=== PATIENT | male | born 1935 | race Asian ===

== ENCOUNTER 2019-01-04 14:51 | Inpatient (IN) | payer MEDICARE ==
[~2019-01-04] VITALS: Ht 167.6 cm; Wt 66.0 kg
[2019-01-04] MEDS ORDERED: ASPIRIN 81 MG TABLET CHEW ONE (15:12)
--- NOTE | 2019-01-04 15:18 | NUR ---
PT AMBULATORY TO ROOM 18 W/ C/O CP STARTED YESTERDAY. PT STATES PAIN TO L SIDE AND WORSE W/ INSPIRATION NOT W/ PALPATION. PT ALSO HAS C/O LUQ ABD PAIN ALSO STARTED LAST NOC. DENIES N/V/D. PT RESTING ON GURNEY. NADN. MONITORS APPLIED. 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 WARM BLANKET PROVIDED.
[2019-01-04] MEDS ORDERED: METF500T17 PO (15:21)
[2019-01-04] MEDS ORDERED: GLYB5TAB3 PO (15:21)
[2019-01-04] MEDS ORDERED: ASPI-515 PO (15:21)
[2019-01-04] MEDS ORDERED: LINA5TAB PO (15:21)
[2019-01-04] MEDS ORDERED: ASPIRIN 81 MG TABLET CHEW PO ONE (15:30)
--- NOTE | 2019-01-04 15:33 | NUR ---
ERP DR. MCGOWAN AT BEDSIDE.
[2019-01-04 15:43] LABS: BASOPHILS # (AUTO) 0.09 x10^3/uL (0-0.1); BASOPHILS % (AUTO) 1 % (0-1); EOSINOPHILS # (AUTO) 0.35 x10^3/uL (0-0.4); EOSINOPHILS % (AUTO) 5 % (1-7); LYMPHOCYTES % (AUTO) 26 % (22-44); MD NO; MEAN CORPUSCULAR HEMOGLOBIN 30.4 pg (27.5-34.5); MEAN CORPUSCULAR HGB CONC 33.5 g/dL (33.2-36.2); MEAN CORPUSCULAR VOLUME 90.8 fL (81-97); MEAN PLATELET VOLUME 9.8 fL (7.4-10.4); MONOCYTES # (AUTO) 0.65 x10^3/uL (0.2-0.8); MONOCYTES % (AUTO) 9 % (2-9); NEUTROPHILS # (AUTO) 4.15 x10^3/uL (1.8-6.8); NEUTROPHILS % (AUTO) 59 % (42-75); PLATELET COUNT 228 x10^3/uL (130-400); RED BLOOD COUNT 4.92 x10^6/uL (4.38-5.82); RED CELL DISTRIBUTION WIDTH 14.7 % (9.4-14.8)
[2019-01-04] MEDS ORDERED: NITROGLYCERIN SINGLE TAB 0.4 MG SL ONE ×2 (15:43→16:00)
[2019-01-04 15:47] LABS: ALBUMIN 4.1 g/dL (3.4-5.0); ANION GAP 8 mmol/L (5-15); CHLORIDE 104 mmol/L (98-107); CREATININE 1.34 mg/dL (0.7-1.3)
--- NOTE | 2019-01-04 15:49 | NUR ---
PT VERBALIZES NO IMPROVEMENT AFTER ADMIN OF NITRO. PAIN REMAINS THE SAME PER PT.
[2019-01-04 15:52] LABS: TROPONIN I 0.029 ng/mL (0.000-0.045)
[2019-01-04 16:15] LABS: INTERNATIONAL NORMALIZED RATIO 0.95 (0.93-1.1)
--- NOTE | 2019-01-04 16:37 | NUR ---
PT RESTING ON LUIS. JOSE ELIAS. VSS. FAMILY REMAINS AT BEDSIDE.
[2019-01-04] MEDS ORDERED: DEXTROSE 4 GM TAB.CHEW PO PRN (17:00)
[2019-01-04] MEDS ORDERED: NITROGLYCERIN 0.4 MG BOTTLE (25 TABS) SL PRN (17:00)
[2019-01-04] MEDS ORDERED: ASPIRIN 325 MG TABLET EC PO ONE (17:00)
[2019-01-04] MEDS ORDERED: GLUCAGON 1 MG IM PRN (17:00)
[2019-01-04] MEDS ORDERED: ACETAMINOPHEN 325 MG TABLET PO PRN (17:00)
[2019-01-04] MEDS ORDERED: morphine SULFATE 10 MG/ML, 1ML IV PRN (17:00)
[2019-01-04] MEDS ORDERED: DEXTROSE 50%, 50ML SYRINGE IVPush PRN (17:00)
[2019-01-04] MEDS ORDERED: HEPARIN 5,000 UNITS/ML, 1ML SQ SCH (17:00)
[2019-01-04] MEDS ORDERED: NITROGLYCERIN 0.4 MG/SPRAY SL PRN (17:00)
[2019-01-04] MEDS ORDERED: OMNIPAQUE 350 MG/ML, 100ML BOTTLE ONE (17:04)
[2019-01-04 17:16] LABS: CHOLESTEROL, TOTAL 151 mg/dL (140-239); TRIGLYCERIDES 214 mg/dL (50-200); VLDL CHOLESTEROL 43 mg/dL (0-25)
[2019-01-04 17:19] LABS: HDL CHOL % 34 % (26-37); HDL CHOLESTEROL (DIRECT) 51 mg/dL (40-60); LDL CHOLESTEROL,CALCULATED 57 mg/dL (54-169); LDL/HDL RATIO 1.1 (0.5-3.0)
--- NOTE | 2019-01-04 17:42 | NUR ---
SPOKE W/ DR. WALSH WHO STATES TO KEEP PT NPO AT THIS TIME.
--- NOTE | 2019-01-04 17:45 | NUR ---
NPO AFTER MN. REG DIET AT THIS TIME.
[2019-01-04] MEDS ORDERED: HEPARIN 5,000 UNITS/ML, 1ML ONE (18:00)
--- NOTE | 2019-01-04 18:07 | NUR ---
PT RESTING ON GURMAHESH. NADN. VSS. FAMILY AWARE OF POC FOR ADMIT. DIET TRAY ORDERED. PT AND FAMILY AWARE OF STRESS TEST AND NEED TO REMAIN NPO AFTER MN AND TO NOT HAVE ANY COFFEE, TEA, CHOCOLATE AND ANY CAFFEINATED ITEMS.
--- NOTE | 2019-01-04 18:18 | NUR ---
PT PROVIDED W/ DINNER TRAY.
--- NOTE | 2019-01-04 18:57 | NUR ---
PT MOVED FROM [facility] TO [facility] BED. REPORT GIVEN TO NELLIE ONEILL.
--- NOTE | 2019-01-04 19:00 | NUR ---
SBAR report received from RNFunmilayo. Pt resting on hospital bed, pt given dinner already.
--- NOTE | 2019-01-04 19:36 | NUR ---
Pt continues resting on hospital bed, pt made aware of new room assignment.
[2019-01-04 19:53] LABS: TROPONIN I 0.384 ng/mL (0.000-0.045)
[2019-01-04] MEDS ORDERED: HEPARIN 25,000 UNITS/500ML PMX 500 ML ONE (21:08)
[2019-01-04] MEDS: SODIUM CHLORIDE FLUSH 10ML SYR IVF SCH ×2 (21:17→22:26)
[2019-01-04] MEDS ORDERED: HEPARIN 25,000 UNITS/500ML PMX 500 ML IV PRN (21:30)
[2019-01-04] MEDS ORDERED: ATORVASTATIN 40 MG TABLET PO SCH (21:30)
[2019-01-04] MEDS ORDERED: HEPARIN 5,000 UNITS/ML, 1ML IV ONE (21:30)
[2019-01-04] MEDS ORDERED: HEPARIN 5,000 UNITS/ML, 1ML IV PRN (21:30)
[2019-01-04 21:43] VITALS: BP 158/85
[2019-01-04] MEDS: SODIUM CHLORIDE 0.9% 1,000 ML IV SCH (22:26)
[2019-01-04] MEDS: GlyBURIDE 5 MG TABLET PO SCH (22:55)
[2019-01-04] MEDS ORDERED: METOPROLOL TARTRATE 25 MG TABLET ONE (23:59)
[2019-01-05] MEDS: METOPROLOL TARTRATE 25 MG TABLET PO SCH ×3 (00:03→17:56)
[2019-01-05 00:48] VITALS: BP 166/68
[2019-01-05 05:28] LABS: BASOPHILS # (AUTO) 0.08 x10^3/uL (0-0.1); BASOPHILS % (AUTO) 1 % (0-1); EOSINOPHILS # (AUTO) 0.42 x10^3/uL (0-0.4); EOSINOPHILS % (AUTO) 5 % (1-7); LYMPHOCYTES % (AUTO) 30 % (22-44); MD NO; MEAN CORPUSCULAR HEMOGLOBIN 30.2 pg (27.5-34.5); MEAN CORPUSCULAR HGB CONC 33.2 g/dL (33.2-36.2); MEAN CORPUSCULAR VOLUME 90.9 fL (81-97); MEAN PLATELET VOLUME 10.1 fL (7.4-10.4); MONOCYTES # (AUTO) 0.99 x10^3/uL (0.2-0.8); MONOCYTES % (AUTO) 11 % (2-9); NEUTROPHILS # (AUTO) 4.71 x10^3/uL (1.8-6.8); NEUTROPHILS % (AUTO) 54 % (42-75); PLATELET COUNT 191 x10^3/uL (130-400); RED BLOOD COUNT 4.63 x10^6/uL (4.38-5.82); RED CELL DISTRIBUTION WIDTH 14.8 % (9.4-14.8)
[2019-01-05 05:42] LABS: CALCIUM 8.5 mg/dL (8.5-10.1); CHLORIDE 110 mmol/L (98-107)
[2019-01-05 05:57] LABS: ALANINE AMINOTRANSFERASE 28 U/L (12-78); ALBUMIN 3.6 g/dL (3.4-5.0); ALKALINE PHOSPHATASE 52 U/L (45-117); ANION GAP 9 mmol/L (5-15); BILIRUBIN,TOTAL 0.4 mg/dL (0.2-1.0); CREATININE 0.99 mg/dL (0.7-1.3); TOTAL PROTEIN 6.8 g/dL (6.4-8.2)
[2019-01-05] MEDS: GlyBURIDE 5 MG TABLET PO SCH ×4 (06:00→20:20)
[2019-01-05] MEDS: ASPIRIN 325 MG TABLET EC PO SCH (06:13)
[2019-01-05] MEDS: SODIUM CHLORIDE 0.9% 1,000 ML IV SCH (06:14)
[2019-01-05 06:38] VITALS: BP 149/66
[2019-01-05 06:47] LABS: HEMOGLOBIN A1C 7.6 % (4.2-6.3)
[2019-01-05] MEDS: LINAGLIPTIN 5 MG TAB PO SCH (09:00)
[2019-01-05] MEDS: SODIUM CHLORIDE FLUSH 10ML SYR IVF SCH ×4 (09:00→20:20)
[2019-01-05] MEDS ORDERED: SODIUM CHLORIDE 0.9% 1,000 ML IV SCH ×3 (11:00→13:43)
[2019-01-05] MEDS ORDERED: MIDAZOLAM 1 MG/ML, 5ML ONE (12:54)
[2019-01-05] MEDS ORDERED: FENTANYL PF 100 MCG/2ML ONE (12:54)
[2019-01-05] MEDS ORDERED: TICAGRELOR 90 MG TABLET ONE (12:55)
[2019-01-05] MEDS ORDERED: BIVALIRUDIN 250 MG ONE (12:55)
[2019-01-05] MEDS ORDERED: VERAPAMIL 2.5 MG/ML, 2ML ONE (12:55)
[2019-01-05] MEDS ORDERED: LIDOCAINE-MPF 1%, 5ML ONE (12:55)
[2019-01-05] MEDS ORDERED: HEPARIN 1,000 UNITS/ML, 10ML ONE (12:55)
[2019-01-05 13:00] VITALS: BP 126/64
[2019-01-05 19:37] VITALS: BP 122/57
[2019-01-05] MEDS ORDERED: ATORVASTATIN 80 MG TABLET PO SCH (21:00)
[2019-01-06 00:33] VITALS: BP 166/70
[2019-01-06 05:00] LABS: BASOPHILS # (AUTO) 0.07 x10^3/uL (0-0.1); BASOPHILS % (AUTO) 1 % (0-1); EOSINOPHILS # (AUTO) 0.44 x10^3/uL (0-0.4); EOSINOPHILS % (AUTO) 5 % (1-7); LYMPHOCYTES % (AUTO) 27 % (22-44); MD NO; MEAN CORPUSCULAR HEMOGLOBIN 30.7 pg (27.5-34.5); MEAN CORPUSCULAR HGB CONC 33.5 g/dL (33.2-36.2); MEAN CORPUSCULAR VOLUME 91.6 fL (81-97); MEAN PLATELET VOLUME 9.5 fL (7.4-10.4); MONOCYTES # (AUTO) 1.01 x10^3/uL (0.2-0.8); MONOCYTES % (AUTO) 12 % (2-9); NEUTROPHILS # (AUTO) 4.73 x10^3/uL (1.8-6.8); NEUTROPHILS % (AUTO) 55 % (42-75); PLATELET COUNT 197 x10^3/uL (130-400); RED BLOOD COUNT 4.53 x10^6/uL (4.38-5.82); RED CELL DISTRIBUTION WIDTH 14.5 % (9.4-14.8)
[2019-01-06 05:11] LABS: ALANINE AMINOTRANSFERASE 26 U/L (12-78); ALBUMIN 3.6 g/dL (3.4-5.0); ANION GAP 2 mmol/L (5-15); CALCIUM 8.8 mg/dL (8.5-10.1); CHLORIDE 112 mmol/L (98-107); CREATININE 1.18 mg/dL (0.7-1.3)
[2019-01-06 05:14] LABS: ALKALINE PHOSPHATASE 51 U/L (45-117); BILIRUBIN,TOTAL 0.3 mg/dL (0.2-1.0); TOTAL PROTEIN 6.6 g/dL (6.4-8.2)
[2019-01-06] MEDS: ASPIRIN 325 MG TABLET EC PO SCH (05:55)
[2019-01-06] MEDS: GlyBURIDE 5 MG TABLET PO SCH ×2 (05:56→09:36)
[2019-01-06] MEDS: METOPROLOL TARTRATE 25 MG TABLET PO SCH (05:56)
[2019-01-06 06:38] VITALS: BP 157/72
[2019-01-06 07:52] VITALS: BP 136/71
[2019-01-06] MEDS: SODIUM CHLORIDE FLUSH 10ML SYR IVF SCH ×2 (09:00→09:36)
[2019-01-06] MEDS: LINAGLIPTIN 5 MG TAB PO SCH (09:36)
[2019-01-06] MEDS ORDERED: CLOPIDOGREL 75 MG TABLET PO SCH (10:00)
[2019-01-06 12:55] VITALS: BP 141/66
[2019-01-06] MEDS ORDERED: METO25TA35 PO (16:28)
[2019-01-06] MEDS ORDERED: CLOP75TA PO (16:28)
[2019-01-06] MEDS ORDERED: ATOR-2 PO (16:28)
[2019-01-07] MEDS ORDERED: ASPIRIN 81 MG TABLET EC PO SCH (06:00)
== END 2019-01-06 17:53 | disposition home or self-care (01) | DRG 280 ==
LOC: ED 15:56 → EDIP 16:27 → INTOOBSV 16:27 → 5SO 20:10 → OBSVTOIN 01-05 14:14
PROVIDERS: ADMIT Family Medicine; ATTEND Family Medicine
PROC: 4A023N7 Measurement of Cardiac Sampling and Pressure, Left Heart, Percutaneous Approach (ICD-10-PCS; principal; 2019-01-05)
PROC: B2111ZZ Fluoroscopy of Multiple Coronary Arteries using Low Osmolar Contrast (ICD-10-PCS; 2019-01-05)
PROC: B2151ZZ Fluoroscopy of Left Heart using Low Osmolar Contrast (ICD-10-PCS; 2019-01-05)
DX: I21.4 Non-ST elevation (NSTEMI) myocardial infarction (principal); N17.0 Acute kidney failure with tubular necrosis; I51.81 Takotsubo syndrome; E11.9 Type 2 diabetes mellitus without complications; H54.7 Unspecified visual loss; E78.5 Hyperlipidemia, unspecified; D64.9 Anemia, unspecified; Z79.899 Other long term (current) drug therapy; Z87.891 Personal history of nicotine dependence; Z95.1 Presence of aortocoronary bypass graft; Z95.5 Presence of coronary angioplasty implant and graft; Z79.82 Long term (current) use of aspirin; Z79.84 Long term (current) use of oral hypoglycemic drugs
CPT/HCPCS: 36415; 71045; 71275; 80048; 80053; 80061; 82040; 82962; 83036; 83880; 84443; 84484; 85025; 85520; 85610; 93005; 93306; 93458; 96372; 99156; 99285; C1769; C1894; G0378; J0583; J1644; J2250; J3010; Q9967; J7030

== ENCOUNTER 2020-08-15 14:38 | Emergency (ER) | payer MEDICARE ==
[~2020-08-15] VITALS: Ht 170.2 cm; Wt 70.5 kg
[~2020-08-15 14:38] MED LIST: ASPI-515 PO; ATOR-2 PO; CLOP75TA PO; GLYB5TAB3 PO; LINA5TAB PO; METF500T17 PO; METO25TA35 PO
--- NOTE | 2020-08-15 15:48 | NUR ---
supercharge repair supervisor note: pt to room from lobby
--- NOTE | 2020-08-15 16:46 | NUR ---
PT RESTING ON SABRINARMAHESH, FAMILY BEDSIDE.
--- NOTE | 2020-08-15 17:03 | NUR ---
AT BEDSIDE. PT HAS LESIONS AND SCABS FROM ITCHING. WAS TOLD IT WAS RING WORM. OTHER MEDICINES HAVE NOT WORKED
[2020-08-15 17:32] LABS: ALANINE AMINOTRANSFERASE 22 U/L (12-78); ALBUMIN 3.6 g/dL (3.4-5.0); ANION GAP 4 mmol/L (5-15); CHLORIDE 105 mmol/L (98-107); CREATININE 1.38 mg/dL (0.7-1.3)
[2020-08-15 17:34] LABS: ALKALINE PHOSPHATASE 76 U/L (45-117); BILIRUBIN,TOTAL 0.2 mg/dL (0.2-1.0); TOTAL PROTEIN 7.3 g/dL (6.4-8.2)
[2020-08-15 18:13] LABS: BASOPHILS % (AUTO) 2 % (0-1); EOSINOPHILS % (AUTO) 9 % (1-7); LYMPHOCYTES % (AUTO) 23 % (22-44); MEAN CORPUSCULAR HEMOGLOBIN 30.2 pg (27.5-34.5); MEAN CORPUSCULAR HGB CONC 33.4 g/dL (33.2-36.2); MEAN PLATELET VOLUME 9.6 fL (7.4-10.4); MONOCYTES % (AUTO) 11 % (2-9); NEUTROPHILS % (AUTO) 55 % (42-75); PLATELET COUNT 230 x10^3/uL (130-400); RED BLOOD COUNT 4.48 x10^6/uL (4.38-5.82); RED CELL DISTRIBUTION WIDTH 14.4 % (9.4-14.8)
[2020-08-15 18:21] LABS: MD NO
--- NOTE | 2020-08-15 18:21 | NUR ---
ASSISTED PT TO VOID W URINAL
[2020-08-15] MEDS ORDERED: FLUCONAZOLE 100 MG TABLET ONE (18:38)
[2020-08-15] MEDS ORDERED: FLUCONAZOLE 50 MG TABLET PO ONE (19:00)
--- NOTE | 2020-08-15 19:03 | NUR ---
PT MEDICATED. PT WAITING FOR DISCHARGE PAPERS
--- NOTE | 2020-08-15 19:10 | NUR ---
Caregiver given discharge instructions and they have confirmed that they understand the instructions. Patient ambulatory with steady gait.
[2020-08-15 19:11] VITALS: BP 122/63
== END 2020-08-15 19:13 | disposition home or self-care (01) ==
LOC: ED 18:45
DX: L50.1 Idiopathic urticaria (principal); I10 Essential (primary) hypertension; E11.9 Type 2 diabetes mellitus without complications; I25.2 Old myocardial infarction
CPT/HCPCS: 36415; 80053; 85025; 99283; J7512